=== PATIENT | male | born 1995 | race African-American/Black ===

== ENCOUNTER 2017-05-26 09:25 | Emergency (ER) | payer SELFPAY | END 2017-05-26 09:47 | disposition home or self-care (01) | LOC: NAV ERS 09:25 | DX: R09.81 Nasal congestion (principal) | CPT/HCPCS: 99283 ==

== ENCOUNTER 2019-01-15 23:30 | Emergency (ER) | payer BC, SELFPAY ==
[2019-01-15] MEDS ORDERED: Ibuprofen 800 MG TAB ONE (23:59)
[2019-01-15] MEDS ORDERED: Acetaminophen 500 MG TAB ONE (23:59)
== END 2019-01-15 23:59 | disposition home or self-care (01) ==
LOC: NAV ERS 23:30
DX: J06.9 Acute upper respiratory infection, unspecified (principal)
CPT/HCPCS: 87081; 87430; 99283